=== PATIENT | male | born 1985 | race Two or more races ===

== ENCOUNTER 2020-10-02 20:54 | Emergency (ER) | payer SELFPAY ==
[~2020-10-02] VITALS: Ht 177.8 cm; Wt 75.0 kg
[2020-10-02] MEDS ORDERED: DIPHENHYDRAMINE 25MG CAPSULE PO ONE (23:30)
[2020-10-02] MEDS ORDERED: METOCLOPRAMIDE HCL 10MG TABLET PO ONE (23:30)
[2020-10-03] MEDS ORDERED: HALOPERIDOL LACTATE 5MG/ML VIAL IM ONE (00:15)
[2020-10-03 01:06] LABS: CHLORIDE 104 mEq/L (98-107)
[2020-10-03 01:09] LABS: HEMATOCRIT. 36.2 % (42.0-52.0); HEMOGLOBIN. 12.4 g/dL (14.0-18.0); MEAN CORPUSCULAR HEMOGLOBIN 30.1 pg (28.0-32.0); MEAN CORPUSCULAR VOLUME 87.9 fL (80.0-94.0); PLATELET 177 x1000/uL (130-400); RED BLOOD CELL COUNT 4.11 mill/uL (4.7-6.1); RED CELL DISTRIBUTION WIDTH 12.1 % (11.6-14.6)
[2020-10-03 01:13] LABS: ETHANOL BLOOD < 10 mg/dL
[2020-10-03 02:11] LABS: PLATELET ESTIMATE NORMAL
[2020-10-03 04:25] VITALS: BP 115/68
== END 2020-10-03 04:26 | disposition home or self-care (01) ==
LOC: ER 20:54
DX: F12.188 Cannabis abuse with other cannabis-induced disorder (principal); R19.7 Diarrhea, unspecified
CPT/HCPCS: 36415; 80053; 80320; 82010; 83690; 85025; 93005; 96372; 99284; J1630; J8597; Q0163; G0480

== ENCOUNTER 2022-06-14 11:48 | Emergency (ER) | payer OTHER ==
[~2022-06-14] VITALS: Ht 177.8 cm; Wt 61.0 kg
[2022-06-14 12:03] VITALS: BP 128/77
[2022-06-14] MEDS ORDERED: METOCLOPRAMIDE HCL 10MG/2ML VIAL IV STA (12:32)
[2022-06-14] MEDS ORDERED: MAGNESIUM/ALUMINUM HYDROXIDE/SIMETHICONE 30ML UDC PO STA (12:32)
[2022-06-14] MEDS ORDERED: SODIUM CHLORIDE 0.9% 1,000 ML IV ONE (12:45)
[2022-06-14 12:54] LABS: BASOPHILS % 0.6 % (0.0-2.0); EOSINOPHILS % 1.4 % (0.0-5.0); HEMATOCRIT. 41.2 % (42.0-52.0); HEMOGLOBIN. 14.2 g/dL (14.0-18.0); LYMPHOCYTES % 16.4 % (20.0-50.0); MEAN CORPUSCULAR HEMOGLOBIN 29.4 pg (28.0-32.0); MEAN CORPUSCULAR VOLUME 85.4 fL (80.0-94.0); MEAN PLATELET VOLUME 7.4 fl (7.4-10.4); MONOCYTES % 4.6 % (2.0-8.0); PLATELET 213 x1000/uL (130-400); RED BLOOD CELL COUNT 4.82 mill/uL (4.7-6.1)
[2022-06-14 13:02] LABS: CHLORIDE 101 mEq/L (98-107)
[2022-06-14 13:12] LABS: ETHANOL BLOOD < 10 mg/dL
[2022-06-14 13:17] LABS: BG BASE EXCESS 1.3 mmol/L (-2.0-2.0); BG CARBOXYHEMOGLOBIN 0.6 % (0.5-1.5); BG DEOXYHEMOGLOBIN 4.5 % (0.0-5.0); BG HCO3 ACT 26.2 mmol/L (22.0-26.0); BG METHEMOGLOBIN 0.2 % (0.0-1.5); BG OXYGEN SATURATION 95.5 % (92.0-98.5); BG OXYHEMOGLOBIN 94.7 % (94.0-97.0); BG PCO2 42.7 mmHg (35.0-45.0); BG PH 7.406 (7.350-7.450); BG PO2 75.7 mmHg (75.0-100.0); BG SAMPLE SITE RIGHT RADIAL; BG TOTAL HEMOGLOBIN 13.6 g/dL (12.0-18.0); BG VENT MODE ROOM AIR
[2022-06-14 13:48] LABS: CLARITY URINE CLEAR (CLEAR); COLOR URINE DARK YELLOW (YELLOW); KETONES URINE TRACE (NEGATIVE); LEUKOCYTE ESTERASE URINE 1+ (NEGATIVE); NITRITE URINE NEGATIVE (NEGATIVE); OCCULT BLOOD URINE TRACE (NEGATIVE); PH URINE 5.5 (4.5-8.0); PROTEIN URINE 3+ (NEGATIVE)
[2022-06-14 14:04] LABS: *AMPHETAMINES SCREEN URINE NEGATIVE (NEGATIVE); *BARBITURATES SCREEN URINE NEGATIVE (NEGATIVE); *BENZODIAZEPINES SCREEN URINE NEGATIVE (NEGATIVE); *COCAINE SCREEN URINE NEGATIVE (NEGATIVE); CANNABINOID URINE SCREEN PRESUMTIVE POSITIVE (NEGATIVE); METHADONE URINE SCREEN NEGATIVE (NEGATIVE); OPIATES URINE SCREEN NEGATIVE (NEGATIVE); PHENCYCLIDINE URINE SCREEN NEGATIVE (NEGATIVE)
[2022-06-14] MEDS ORDERED: ONDA4TAB11 PO (15:10)
== END 2022-06-14 16:29 | disposition home or self-care (01) ==
LOC: ER 12:11
DX: R42 Dizziness and giddiness (principal); R53.1 Weakness; E11.9 Type 2 diabetes mellitus without complications; F12.10 Cannabis abuse, uncomplicated
CPT/HCPCS: 36415; 36600; 71045; 80053; 80305; 80320; 81003; 82375; 82805; 83690; 85025; 87086; 93005; 96361; 96374; 99285; J2765; J7030; G0480